=== PATIENT | male | born 1960 | race Caucasian/White ===

== ENCOUNTER 2017-06-03 10:16 | Emergency (ER) | payer OTHER ==
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
[2017-06-03 10:32] VITALS: TEMP 98.7; BMI 26.6
[2017-06-03] MEDS ORDERED: SODIUM CHLORIDE 1,000 ML IV STA (10:49)
[2017-06-03 10:58] LABS: BASO % 0.6 % (0-2.0); HEMATOCRIT 32.5 % (35.4-49); HEMOGLOBIN 11.2 GM/dL (11.7-16.9); MCH 33.7 pg (25.7-33.7); MCHC 34.5 g/dl (32.0-35.9); MEAN CELL VOLUME 97.9 fl (80-96); MEAN PLT VOLUME 9.3 fl (7.5-11.1); MONO % 8.8 % (3.8-10.2); NEUT % 64.6 % (42.8-82.8); PLATELET COUNT 250 K/MM3 (134-434); RBC 3.33 M/mm3 (4.00-5.60); RDW 13.5 % (11.9-15.9); WHITE BLOOD COUNT 8.5 K/mm3 (4.0-10.0)
[2017-06-03] MEDS ORDERED: INSULIN REGULAR HUMAN 100 UNITS/ML *VIAL IVPUSH ONE (11:19)
[2017-06-03 11:24] LABS: ALBUMIN 3.7 g/dl (3.4-5.0); ALK PHOS 179 U/L (45-117); ANION GAP 6 (8-16); BILIRUBIN,TOTAL 0.3 mg/dL (0.2-1.0); BLOOD UREA NITROGEN 23 mg/dL (7-18); CALCIUM 8.8 mg/dL (8.5-10.1); CHLORIDE 97 mmol/L (98-107); CO2 28 mmol/L (21-32); CREATININE 1.1 mg/dL (0.7-1.3); POTASSIUM 4.9 mmol/L (3.5-5.1); SGOT/AST 14 U/L (15-37); SGPT/ALT 18 U/L (12-78); SODIUM 131 mmol/L (136-145); TOT PROT 7.5 g/dl (6.4-8.2)
[2017-06-03] MEDS ORDERED: INSULIN REGULAR HUMAN 100 UNITS/ML *VIAL ONE (11:36)
[2017-06-03 11:42] LABS: GLUCOSE,RANDOM 415 mg/dL (74-106)
[2017-06-03 12:44] VITALS: BP 110/62; PULSE 68
[2017-06-03 12:59] LABS: ACETONE SERUM NEGATIVE (NEGATIVE)
[2017-06-03 13:09] LABS: URINE APPEARANCE CLEAR; URINE BILIRUBIN NEGATIVE (<2.0 mg/dL); URINE BLOOD NEGATIVE (NEGATIVE); URINE COLOR STRAW; URINE GLUCOSE (UA) 3+ (NEGATIVE); URINE KETONE NEGATIVE (NEGATIVE); URINE LEUK ESTERASE NEGATIVE (NEGATIVE); URINE NITRITE NEGATIVE (NEGATIVE); URINE PROTEIN NEGATIVE (NEGATIVE); URINE UROBILINOGEN NEGATIVE mg/dL (0.2-1.0)
--- NOTE | 2017-06-05 12:50 | EKG ---
Test Reason : Blood Pressure : / mmHG Vent. Rate : 087 BPM Atrial Rate : 087 BPM P-R Int : 138 ms QRS Dur : 090 ms QT Int : 372 ms P-R-T Axes : 065 014 055 degrees QTc Int : 447 ms NORMAL SINUS RHYTHM NORMAL ECG NO PREVIOUS ECGS AVAILABLE Confirmed by TILA WINKLER MD ([id number]) on 06/05/2017 12:50:23 PM Referred By: Confirmed By:TILA WINKLER MD
== END 2017-06-03 13:25 | disposition home or self-care (01) ==
LOC: JER 10:16
PROC: 3E0337Z Introduction of Electrolytic and Water Balance Substance into Peripheral Vein, Percutaneous Approach (ICD-10-PCS; principal; 2017-06-03)
PROC: 3E033VG Introduction of Insulin into Peripheral Vein, Percutaneous Approach (ICD-10-PCS; 2017-06-03)
DX: E10.65 Type 1 diabetes mellitus with hyperglycemia (principal); Z79.4 Long term (current) use of insulin; F17.210 Nicotine dependence, cigarettes, uncomplicated; Z79.82 Long term (current) use of aspirin; Z86.69 Personal history of other diseases of the nervous system and sense organs
CPT/HCPCS: 36415; 80053; 81003; 82009; 82550; 82553; 82962; 85025; 93005; 93010; 96361; 96374; 99282-25; J7030

== ENCOUNTER 2017-06-12 09:18 | Inpatient (IN) | payer OTHER ==
[2017-06-12 09:31] VITALS: BMI 27.6
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
[2017-06-12] MEDS ORDERED: MENTHOL/PHENOL 1 EACH UD MM PRN (13:20)
[2017-06-12] MEDS ORDERED: ACETAMINOPHEN 325 MG TABLET (FP) PO PRN (13:20)
[2017-06-12] MEDS ORDERED: LOPERAMIDE HCL 2 MG CAPSULE PO PRN (13:20)
[2017-06-12] MEDS ORDERED: P-EPHED 60MG/TRIPROLIDI 2.5MG TABLET PO PRN (13:20)
[2017-06-12] MEDS ORDERED: MAG HYDROX/AL HYDROX/SIMETH 30 ML UNIT-DOSE CUP PO PRN (13:20)
[2017-06-12] MEDS ORDERED: hydrOXYzine PAMOATE 50 MG CAPSULE (FP) PO PRN (13:20)
[2017-06-12] MEDS ORDERED: MAGNESIUM CITRATE 300 ML BOTTLE PO PRN (13:20)
[2017-06-12] MEDS ORDERED: guaiFENesin/D-METHORPHAN HB 10 ML UNIT-DOSE CUPS PO PRN (13:20)
[2017-06-12] MEDS ORDERED: INSULIN SLIDING SCALE (NOVOLOG) 1 VIAL SQ SCH (16:30)
[2017-06-12] MEDS ORDERED: PATIENT'S OWN MEDICATION (NON-FORMULARY) (Sitagliptin Phos/Metformin Hcl [Janumet 50-1,000 PO SCH (16:30)
[2017-06-12] MEDS ORDERED: INSULIN SLIDING SCALE (NOVOLOG) 1 VIAL SQ ONE (17:24)
[2017-06-12] MEDS ORDERED: TUBERCULIN PPD 5 TU/0.1ML VIAL ID ONE (17:25)
[2017-06-12] MEDS: ASPIRIN COATED 81 MG TABLET.EC PO SCH (17:26)
[2017-06-12] MEDS: sitaGLIPtin PHOSPHATE 50 MG TABLET PO SCH (17:26)
[2017-06-12] MEDS: ENALAPRIL MALEATE 10 MG TABLET (FP) PO SCH (17:26)
[2017-06-12] MEDS: metFORMIN HCL 500 MG TABLET (FP) PO SCH (17:26)
[2017-06-12] MEDS: DOCUSATE SODIUM 100 MG CAPSULE (FP) PO SCH ×2 (17:26→21:34)
[2017-06-12] MEDS: NICOTINE 21 MG/24 HOURS TOPICAL PATCH TD SCH (17:27)
[2017-06-12 17:52] LABS: HEMATOCRIT 34.5 % (35.4-49); HEMOGLOBIN 11.6 GM/dL (11.7-16.9); MCH 33.2 pg (25.7-33.7); MCHC 33.7 g/dl (32.0-35.9); MEAN CELL VOLUME 98.5 fl (80-96); MEAN PLT VOLUME 9.5 fl (7.5-11.1); PLATELET COUNT 287 K/MM3 (134-434); RDW 13.7 % (11.9-15.9); WHITE BLOOD COUNT 7.8 K/mm3 (4.0-10.0)
[2017-06-12 18:03] LABS: URINE APPEARANCE CLEAR; URINE BILIRUBIN NEGATIVE (<2.0 mg/dL); URINE COLOR LTYELLOW; URINE GLUCOSE (UA) 3+ (NEGATIVE); URINE KETONE NEGATIVE (NEGATIVE); URINE LEUK ESTERASE NEGATIVE (NEGATIVE); URINE NITRITE NEGATIVE (NEGATIVE); URINE PROTEIN NEGATIVE (NEGATIVE); URINE UROBILINOGEN NEGATIVE mg/dL (0.2-1.0)
[2017-06-12 18:36] LABS: ALBUMIN 3.9 g/dl (3.4-5.0); ANION GAP 12 (8-16); BLOOD UREA NITROGEN 18 mg/dL (7-18); CHLORIDE 100 mmol/L (98-107); CO2 24 mmol/L (21-32); CREATININE 1.1 mg/dL (0.7-1.3); POTASSIUM 4.6 mmol/L (3.5-5.1); SGOT/AST 26 U/L (15-37); SGPT/ALT 36 U/L (12-78); SODIUM 136 mmol/L (136-145)
[2017-06-12 18:38] LABS: ALK PHOS 189 U/L (45-117); BILIRUBIN,TOTAL 0.5 mg/dL (0.2-1.0); TOT PROT 7.8 g/dl (6.4-8.2)
[2017-06-12 18:40] LABS: GLUCOSE,RANDOM 425 mg/dL (74-106)
[2017-06-12 19:00] LABS: SICKLE CELL SCREEN NEGATIVE (NEGATIVE)
[2017-06-12] MEDS: ATORVASTATIN CA 40 MG TABLET (FP) PO SCH (21:33)
[2017-06-12] MEDS: THIAMINE HCL 100 MG TABLET (FP) PO SCH (21:34)
[2017-06-12] MEDS: INSULIN (LEVEMIR) 100 UNITS/ML UNITS SQ SCH (21:36)
[2017-06-12] MEDS: FLUTICASONE PROP 0.05% 16 GM NASAL SPRAY NS SCH ×2 (21:38→21:41)
[2017-06-12] MEDS ORDERED: MELATONIN 5 MG TABLETS PO PRN (22:00)
[2017-06-13] MEDS: sitaGLIPtin PHOSPHATE 50 MG TABLET PO SCH ×2 (06:31→16:38)
[2017-06-13] MEDS: metFORMIN HCL 500 MG TABLET (FP) PO SCH ×2 (06:31→16:38)
[2017-06-13] MEDS ORDERED: INSULIN SLIDING SCALE (NOVOLOG) 1 VIAL SQ SCH (07:00)
[2017-06-13] MEDS: PRENATAL VITAMINS W/ FOLIC ACID TABLET (FP) PO SCH (10:15)
[2017-06-13] MEDS: ENALAPRIL MALEATE 10 MG TABLET (FP) PO SCH (10:15)
[2017-06-13] MEDS: ASPIRIN COATED 81 MG TABLET.EC PO SCH (10:15)
[2017-06-13] MEDS: DOCUSATE SODIUM 100 MG CAPSULE (FP) PO SCH ×2 (10:15→21:22)
[2017-06-13] MEDS: NICOTINE 21 MG/24 HOURS TOPICAL PATCH TD SCH (10:16)
--- NOTE | 2017-06-13 10:24 | EKG ---
Test Reason : Blood Pressure : / mmHG Vent. Rate : 076 BPM Atrial Rate : 076 BPM P-R Int : 134 ms QRS Dur : 090 ms QT Int : 392 ms P-R-T Axes : 068 025 062 degrees QTc Int : 441 ms NORMAL SINUS RHYTHM NORMAL ECG WHEN COMPARED WITH ECG OF 03-JUN-2017 10:30, T WAVE AMPLITUDE HAS DECREASED IN ANTERIOR LEADS Confirmed by MD EDISON, ELSA ([id number]) on 06/13/2017 10:24:35 AM Referred By: Confirmed By:ELSA HOGAN MD
[2017-06-13] MEDS ORDERED: INSULIN (NOVOLOG) ASPART 100 UNITS/ML 10ML VIAL ONE ×2 (11:53→16:38)
[2017-06-13] MEDS: INSULIN SLIDING SCALE (NOVOLOG) 1 VIAL SQ SCH ×3 (11:54→21:23)
[2017-06-13] MEDS: NICOTINE POLACRILEX 4 MG GUM BUC PRN ×3 (11:56→21:26)
[2017-06-13] MEDS: FLUTICASONE PROP 0.05% 16 GM NASAL SPRAY NS SCH ×2 (12:07→21:23)
--- NOTE | 2017-06-13 13:35 | PN ---
S Progress Note Note: Patient with hx of heroin dependence c/o of protracted withdrawal symptoms : runny nose, diarrhea, body aches and chills. Vital Signs Temperature 97.7 F 06/13/17 06:48 Pulse Rate 81 06/13/17 06:48 Respiratory Rate 18 06/13/17 06:48 Blood Pressure 113/73 06/13/17 06:48 O2 Sat by Pulse Oximetry (%) 06/12/17 06/12/17 14:00 14:00 WBC 7.8 RBC 3.50 L Hgb 11.6 L Hct 34.5 L MCV 98.5 H MCHC 33.7 RDW 13.7 Plt Count 287 Sodium 136 Potassium 4.6 Chloride 100 Carbon Dioxide 24 Anion Gap 12 BUN 18 D Creatinine 1.1 Laboratory Last Values WBC 7.8 K/mm3 (4.0-10.0) 06/12/17 14:00 RBC 3.50 M/mm3 (4.00-5.60) L 06/12/17 14:00 Hgb 11.6 GM/dL (11.7-16.9) L 06/12/17 14:00 Hct 34.5 % (35.4-49) L 06/12/17 14:00 MCV 98.5 fl (80-96) H 06/12/17 14:00 MCH 33.2 pg (25.7-33.7) 06/12/17 14:00 MCHC 33.7 g/dl (32.0-35.9) 06/12/17 14:00 RDW 13.7 % (11.9-15.9) 06/12/17 14:00 Plt Count 287 K/MM3 (134-434) 06/12/17 14:00 MPV 9.5 fl (7.5-11.1) 06/12/17 14:00 Sickle Cell Screen Negative (NEGATIVE) 06/12/17 14:00 Sodium 136 mmol/L (136-145) 06/12/17 14:00 Potassium 4.6 mmol/L (3.5-5.1) 06/12/17 14:00 Chloride 100 mmol/L (98-107) 06/12/17 14:00 Carbon Dioxide 24 mmol/L (21-32) 06/12/17 14:00 Anion Gap 12 (8-16) 06/12/17 14:00 BUN 18 mg/dL (7-18) D 06/12/17 14:00 Creatinine 1.1 mg/dL (0.7-1.3) 06/12/17 14:00 Creat Clearance w eGFR > 60 (>60) 06/12/17 14:00 POC Glucometer 356 UNITS (80-120) 06/13/17 11:50 Random Glucose 425 mg/dL (74-106) H* 06/12/17 14:00 Calcium 9.0 mg/dL (8.5-10.1) 06/12/17 14:00 Total Bilirubin 0.5 mg/dL (0.2-1.0) D 06/12/17 14:00 AST 26 U/L (15-37) D 06/12/17 14:00 ALT 36 U/L (12-78) D 06/12/17 14:00 Alkaline Phosphatase 189 U/L (45-117) H 06/12/17 14:00 Total Protein 7.8 g/dl (6.4-8.2) 06/12/17 14:00 Albumin 3.9 g/dl (3.4-5.0) 06/12/17 14:00 Urine Color Ltyellow 06/12/17 17:44 Urine Appearance Clear 06/12/17 17:44 Urine pH 5.0 (5.0-8.0) 06/12/17 17:44 Ur Specific [place] 1.025 (1.001-1.035) 06/12/17 17:44 Urine Protein Negative (NEGATIVE) 06/12/17 17:44 Urine Glucose (UA) 3+ (NEGATIVE) H 06/12/17 17:44 Urine Ketones Negative (NEGATIVE) 06/12/17 17:44 Urine Blood Negative (NEGATIVE) 06/12/17 17:44 Urine Nitrite Negative (NEGATIVE) 06/12/17 17:44 Urine Bilirubin Negative (<2.0 mg/dL) 06/12/17 17:44 Urine Urobilinogen Negative mg/dL (0.2-1.0) 06/12/17 17:44 Ur Leukocyte Esterase Negative (NEGATIVE) 06/12/17 17:44 RPR Titer Nonreactive (NONREACTIVE) 06/12/17 14:00 HIV 1&2 Antibody Screen Negative 06/13/17 07:30 HIV P24 Antigen Negative 04/24/18 07:30 Labs noted A/P Patient AOx3, no distress, anxious + mild diaphoresis No adventcious breath sounds BS x4 Plan: Continue BGM x QID with insulin coverage Increase fluids Patient started on Suboxone 2mg film qd, patient will be monitor for dose adjustment Immodium for diarrhea tylenol for body aches
[2017-06-13] MEDS: IBUPROFEN 400 MG TABLET (FP) PO PRN (13:37)
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
[2017-06-13] MEDS: BUPRENORPHINE/NALOXONE 2 MG/0.5 MG FILM PACKET SL SCH (14:15)
[2017-06-13] MEDS: ATORVASTATIN CA 40 MG TABLET (FP) PO SCH (21:22)
[2017-06-13] MEDS: THIAMINE HCL 100 MG TABLET (FP) PO SCH (21:22)
[2017-06-13] MEDS: INSULIN (LEVEMIR) 100 UNITS/ML UNITS SQ SCH (21:22)
[2017-06-13] MEDS: BACITRACIN 0.9 GM PACKET TP SCH (21:25)
[2017-06-13] MEDS: ARIPiprazole 10 MG TABLET PO SCH (21:25)
[2017-06-13] MEDS: MIRTAZAPINE 15 MG TABLET (FP) PO SCH (21:25)
[2017-06-14] MEDS: INSULIN SLIDING SCALE (NOVOLOG) 1 VIAL SQ SCH ×4 (06:46→21:24)
[2017-06-14] MEDS: NICOTINE POLACRILEX 4 MG GUM BUC PRN ×3 (06:47→16:54)
[2017-06-14] MEDS: metFORMIN HCL 500 MG TABLET (FP) PO SCH ×2 (06:47→16:53)
[2017-06-14] MEDS: sitaGLIPtin PHOSPHATE 50 MG TABLET PO SCH ×2 (06:47→16:53)
[2017-06-14] MEDS: IBUPROFEN 400 MG TABLET (FP) PO PRN ×2 (06:48→11:54)
[2017-06-14] MEDS: ASPIRIN COATED 81 MG TABLET.EC PO SCH (09:46)
[2017-06-14] MEDS: ENALAPRIL MALEATE 10 MG TABLET (FP) PO SCH (09:46)
[2017-06-14] MEDS: FLUTICASONE PROP 0.05% 16 GM NASAL SPRAY NS SCH ×2 (09:46→21:26)
[2017-06-14] MEDS: PRENATAL VITAMINS W/ FOLIC ACID TABLET (FP) PO SCH (09:46)
[2017-06-14] MEDS: DOCUSATE SODIUM 100 MG CAPSULE (FP) PO SCH ×2 (09:46→21:25)
[2017-06-14] MEDS: BUPRENORPHINE/NALOXONE 2 MG/0.5 MG FILM PACKET SL SCH (09:46)
[2017-06-14] MEDS: BACITRACIN 0.9 GM PACKET TP SCH ×2 (09:46→21:25)
[2017-06-14] MEDS: VENLAFAXINE HCL 150 MG E.R. CAPSULE PO SCH (09:47)
[2017-06-14] MEDS: NICOTINE 21 MG/24 HOURS TOPICAL PATCH TD SCH (09:48)
[2017-06-14] MEDS ORDERED: INSULIN (NOVOLOG) ASPART 100 UNITS/ML 10ML VIAL ONE (11:52)
--- NOTE | 2017-06-14 12:45 | PN ---
S Progress Note Note: Pt c/o left hand discomfort. Chronic after sustaining fall 6 months ago. Treated in ER and as per patient XRAY at that time showed no broken bones. Laboratory Last Values WBC 7.8 K/mm3 (4.0-10.0) 06/12/17 14:00 RBC 3.50 M/mm3 (4.00-5.60) L 06/12/17 14:00 Hgb 11.6 GM/dL (11.7-16.9) L 06/12/17 14:00 Hct 34.5 % (35.4-49) L 06/12/17 14:00 MCV 98.5 fl (80-96) H 06/12/17 14:00 MCH 33.2 pg (25.7-33.7) 06/12/17 14:00 MCHC 33.7 g/dl (32.0-35.9) 06/12/17 14:00 RDW 13.7 % (11.9-15.9) 06/12/17 14:00 Plt Count 287 K/MM3 (134-434) 06/12/17 14:00 MPV 9.5 fl (7.5-11.1) 06/12/17 14:00 Sickle Cell Screen Negative (NEGATIVE) 06/12/17 14:00 Sodium 136 mmol/L (136-145) 06/12/17 14:00 Potassium 4.6 mmol/L (3.5-5.1) 06/12/17 14:00 Chloride 100 mmol/L (98-107) 06/12/17 14:00 Carbon Dioxide 24 mmol/L (21-32) 06/12/17 14:00 Anion Gap 12 (8-16) 06/12/17 14:00 BUN 18 mg/dL (7-18) D 06/12/17 14:00 Creatinine 1.1 mg/dL (0.7-1.3) 06/12/17 14:00 Creat Clearance w eGFR > 60 (>60) 06/12/17 14:00 POC Glucometer 150 UNITS (80-120) 06/14/17 06:46 Random Glucose 425 mg/dL (74-106) H* 06/12/17 14:00 Calcium 9.0 mg/dL (8.5-10.1) 06/12/17 14:00 Total Bilirubin 0.5 mg/dL (0.2-1.0) D 06/12/17 14:00 AST 26 U/L (15-37) D 06/12/17 14:00 ALT 36 U/L (12-78) D 06/12/17 14:00 Alkaline Phosphatase 189 U/L (45-117) H 06/12/17 14:00 Total Protein 7.8 g/dl (6.4-8.2) 06/12/17 14:00 Albumin 3.9 g/dl (3.4-5.0) 06/12/17 14:00 Urine Color Ltyellow 06/12/17 17:44 Urine Appearance Clear 06/12/17 17:44 Urine pH 5.0 (5.0-8.0) 06/12/17 17:44 Ur Specific [place] 1.025 (1.001-1.035) 06/12/17 17:44 Urine Protein Negative (NEGATIVE) 06/12/17 17:44 Urine Glucose (UA) 3+ (NEGATIVE) H 06/12/17 17:44 Urine Ketones Negative (NEGATIVE) 06/12/17 17:44 Urine Blood Negative (NEGATIVE) 06/12/17 17:44 Urine Nitrite Negative (NEGATIVE) 06/12/17 17:44 Urine Bilirubin Negative (<2.0 mg/dL) 06/12/17 17:44 Urine Urobilinogen Negative mg/dL (0.2-1.0) 06/12/17 17:44 Ur Leukocyte Esterase Negative (NEGATIVE) 06/12/17 17:44 RPR Titer Nonreactive (NONREACTIVE) 06/12/17 14:00 HIV 1&2 Antibody Screen Negative 06/13/17 07:30 HIV P24 Antigen Negative 06/13/17 07:30 Vital Signs Temperature 98.0 F 06/14/17 06:36 Pulse Rate 83 06/14/17 06:36 Respiratory Rate 18 06/14/17 06:36 Blood Pressure 144/80 06/14/17 06:36 O2 Sat by Pulse Oximetry (%) Obj: general: in no acute distress. Ambulating within unit but patient reports using cane in past for unsteady gait. Would like cane to ambulate within unit. Skin warm and dry.Intact Ext: left hand with brace. Mild +1 swelling noted. + Flexion and extension of fingers with mild discomfort. A/P: Left hand swelling/discomfort Will continue Motrin as ordered add Ted lacy ointment BID continue to monitor clinically
[2017-06-14] MEDS: INSULIN (LEVEMIR) 100 UNITS/ML UNITS SQ SCH (21:22)
[2017-06-14] MEDS: MIRTAZAPINE 15 MG TABLET (FP) PO SCH (21:25)
[2017-06-14] MEDS: ATORVASTATIN CA 40 MG TABLET (FP) PO SCH (21:25)
[2017-06-14] MEDS: THIAMINE HCL 100 MG TABLET (FP) PO SCH (21:25)
[2017-06-14] MEDS: METHYL SALICYLATE/MENTHOL OINT 30 GM TUBE TP SCH (21:25)
[2017-06-14] MEDS: ARIPiprazole 10 MG TABLET PO SCH (21:25)
[2017-06-15] MEDS: INSULIN SLIDING SCALE (NOVOLOG) 1 VIAL SQ SCH ×4 (06:39→21:31)
[2017-06-15] MEDS: metFORMIN HCL 500 MG TABLET (FP) PO SCH ×2 (08:04→17:06)
[2017-06-15] MEDS: sitaGLIPtin PHOSPHATE 50 MG TABLET PO SCH ×2 (08:04→17:06)
[2017-06-15] MEDS: ASPIRIN COATED 81 MG TABLET.EC PO SCH (09:55)
[2017-06-15] MEDS: NICOTINE 21 MG/24 HOURS TOPICAL PATCH TD SCH (09:55)
[2017-06-15] MEDS: PRENATAL VITAMINS W/ FOLIC ACID TABLET (FP) PO SCH (09:55)
[2017-06-15] MEDS: BACITRACIN 0.9 GM PACKET TP SCH ×2 (09:55→21:26)
[2017-06-15] MEDS: FLUTICASONE PROP 0.05% 16 GM NASAL SPRAY NS SCH ×2 (09:55→21:28)
[2017-06-15] MEDS: ENALAPRIL MALEATE 10 MG TABLET (FP) PO SCH (09:58)
[2017-06-15] MEDS: BUPRENORPHINE/NALOXONE 2 MG/0.5 MG FILM PACKET SL SCH (09:58)
[2017-06-15] MEDS: VENLAFAXINE HCL 150 MG E.R. CAPSULE PO SCH (09:58)
[2017-06-15] MEDS: METHYL SALICYLATE/MENTHOL OINT 30 GM TUBE TP SCH ×2 (09:58→21:28)
[2017-06-15] MEDS: DOCUSATE SODIUM 100 MG CAPSULE (FP) PO SCH ×2 (09:58→21:26)
[2017-06-15] MEDS: IBUPROFEN 400 MG TABLET (FP) PO PRN (09:59)
[2017-06-15] MEDS ORDERED: INSULIN (NOVOLOG) ASPART 100 UNITS/ML 10ML VIAL ONE (11:54)
--- NOTE | 2017-06-15 16:41 | PN ---
[facility] Progress Note Note: Patient c/o of runny nose, diarrhea with BM x3, runny nose sweats, chills, body caches. Vital Signs Temperature 97.3 F L 06/15/17 07:11 Pulse Rate 78 06/15/17 07:11 Respiratory Rate 18 06/15/17 07:11 Blood Pressure 141/91 06/15/17 07:11 O2 Sat by Pulse Oximetry (%) Laboratory Last Values WBC 7.8 K/mm3 (4.0-10.0) 06/12/17 14:00 RBC 3.50 M/mm3 (4.00-5.60) L 06/12/17 14:00 Hgb 11.6 GM/dL (11.7-16.9) L 06/12/17 14:00 Hct 34.5 % (35.4-49) L 06/12/17 14:00 MCV 98.5 fl (80-96) H 06/12/17 14:00 MCH 33.2 pg (25.7-33.7) 06/12/17 14:00 MCHC 33.7 g/dl (32.0-35.9) 06/12/17 14:00 RDW 13.7 % (11.9-15.9) 06/12/17 14:00 Plt Count 287 K/MM3 (134-434) 06/12/17 14:00 MPV 9.5 fl (7.5-11.1) 06/12/17 14:00 Sickle Cell Screen Negative (NEGATIVE) 06/12/17 14:00 Sodium 136 mmol/L (136-145) 06/12/17 14:00 Potassium 4.6 mmol/L (3.5-5.1) 06/12/17 14:00 Chloride 100 mmol/L (98-107) 06/12/17 14:00 Carbon Dioxide 24 mmol/L (21-32) 06/12/17 14:00 Anion Gap 12 (8-16) 06/12/17 14:00 BUN 18 mg/dL (7-18) D 06/12/17 14:00 Creatinine 1.1 mg/dL (0.7-1.3) 06/12/17 14:00 Creat Clearance w eGFR > 60 (>60) 06/12/17 14:00 POC Glucometer 258 UNITS (80-120) 06/15/17 11:52 Random Glucose 425 mg/dL (74-106) H* 06/12/17 14:00 Calcium 9.0 mg/dL (8.5-10.1) 06/12/17 14:00 Total Bilirubin 0.5 mg/dL (0.2-1.0) D 06/12/17 14:00 AST 26 U/L (15-37) D 06/12/17 14:00 ALT 36 U/L (12-78) D 06/12/17 14:00 Alkaline Phosphatase 189 U/L (45-117) H 06/12/17 14:00 Total Protein 7.8 g/dl (6.4-8.2) 06/12/17 14:00 Albumin 3.9 g/dl (3.4-5.0) 06/12/17 14:00 Urine Color Ltyellow 06/12/17 17:44 Urine Appearance Clear 06/12/17 17:44 Urine pH 5.0 (5.0-8.0) 06/12/17 17:44 Ur Specific [place] 1.025 (1.001-1.035) 06/12/17 17:44 Urine Protein Negative (NEGATIVE) 06/12/17 17:44 Urine Glucose (UA) 3+ (NEGATIVE) H 06/12/17 17:44 Urine Ketones Negative (NEGATIVE) 06/12/17 17:44 Urine Blood Negative (NEGATIVE) 06/12/17 17:44 Urine Nitrite Negative (NEGATIVE) 06/12/17 17:44 Urine Bilirubin Negative (<2.0 mg/dL) 06/12/17 17:44 Urine Urobilinogen Negative mg/dL (0.2-1.0) 06/12/17 17:44 Ur Leukocyte Esterase Negative (NEGATIVE) 06/12/17 17:44 RPR Titer Nonreactive (NONREACTIVE) 06/12/17 14:00 HIV 1&2 Antibody Screen Negative 06/13/17 07:30 HIV P24 Antigen Negative 06/13/17 07:30 A/P Patient AOX3 Ambulating in the unit No apparent distress BS x 4, no tenderness - Opioid Protracted withdrawal Plan: Increase suboxone from 2mg to 4mg starting 06/16/17 lomotil one dose increase fluids continue to monitor
[2017-06-15] MEDS ORDERED: DIPHENOXYLATE 2.5/ATROPINE.025 1 COMBO TABLET PO ONE (17:00)
[2017-06-15] MEDS ORDERED: INSULIN SLIDING SCALE (NOVOLOG) 1 VIAL SQ ONE ×2 (17:08→22:11)
[2017-06-15] MEDS: MIRTAZAPINE 15 MG TABLET (FP) PO SCH (21:26)
[2017-06-15] MEDS: ARIPiprazole 10 MG TABLET PO SCH (21:26)
[2017-06-15] MEDS: THIAMINE HCL 100 MG TABLET (FP) PO SCH (21:27)
[2017-06-15] MEDS: ATORVASTATIN CA 40 MG TABLET (FP) PO SCH (21:27)
[2017-06-15] MEDS: INSULIN (LEVEMIR) 100 UNITS/ML UNITS SQ SCH (21:28)
[2017-06-15] MEDS: NICOTINE POLACRILEX 4 MG GUM BUC PRN (21:32)
[2017-06-16] MEDS: metFORMIN HCL 500 MG TABLET (FP) PO SCH ×2 (06:42→16:51)
[2017-06-16] MEDS: sitaGLIPtin PHOSPHATE 50 MG TABLET PO SCH ×2 (06:43→16:51)
[2017-06-16] MEDS: INSULIN SLIDING SCALE (NOVOLOG) 1 VIAL SQ SCH ×4 (06:44→21:34)
[2017-06-16] MEDS: BACITRACIN 0.9 GM PACKET TP SCH ×2 (09:54→21:37)
[2017-06-16] MEDS: DOCUSATE SODIUM 100 MG CAPSULE (FP) PO SCH ×2 (09:55→21:31)
[2017-06-16] MEDS: FLUTICASONE PROP 0.05% 16 GM NASAL SPRAY NS SCH ×2 (09:55→21:36)
[2017-06-16] MEDS: VENLAFAXINE HCL 150 MG E.R. CAPSULE PO SCH (09:55)
[2017-06-16] MEDS: PRENATAL VITAMINS W/ FOLIC ACID TABLET (FP) PO SCH (09:55)
[2017-06-16] MEDS: METHYL SALICYLATE/MENTHOL OINT 30 GM TUBE TP SCH ×2 (09:56→21:36)
[2017-06-16] MEDS: BUPRENORPHINE/NALOXONE 2 MG/0.5 MG FILM PACKET SL SCH (09:56)
[2017-06-16] MEDS: ENALAPRIL MALEATE 10 MG TABLET (FP) PO SCH (09:56)
[2017-06-16] MEDS: ASPIRIN COATED 81 MG TABLET.EC PO SCH (09:56)
[2017-06-16] MEDS: NICOTINE 21 MG/24 HOURS TOPICAL PATCH TD SCH (09:57)
[2017-06-16] MEDS: IBUPROFEN 400 MG TABLET (FP) PO PRN ×2 (09:59→21:32)
[2017-06-16] MEDS: NICOTINE POLACRILEX 4 MG GUM BUC PRN ×2 (10:00→21:37)
[2017-06-16] MEDS ORDERED: INSULIN (NOVOLOG) ASPART 100 UNITS/ML 10ML VIAL ONE (11:48)
[2017-06-16] MEDS: THIAMINE HCL 100 MG TABLET (FP) PO SCH (21:31)
[2017-06-16] MEDS: MIRTAZAPINE 15 MG TABLET (FP) PO SCH (21:31)
[2017-06-16] MEDS: ATORVASTATIN CA 40 MG TABLET (FP) PO SCH (21:31)
[2017-06-16] MEDS: ARIPiprazole 10 MG TABLET PO SCH (21:31)
[2017-06-16] MEDS ORDERED: INSULIN SLIDING SCALE (NOVOLOG) 1 VIAL SQ ONE (21:31)
[2017-06-16] MEDS: INSULIN (LEVEMIR) 100 UNITS/ML UNITS SQ SCH (21:33)
[2017-06-17] MEDS: INSULIN SLIDING SCALE (NOVOLOG) 1 VIAL SQ SCH ×4 (06:25→21:32)
[2017-06-17] MEDS: metFORMIN HCL 500 MG TABLET (FP) PO SCH ×3 (06:29→16:50)
[2017-06-17] MEDS: sitaGLIPtin PHOSPHATE 50 MG TABLET PO SCH ×3 (06:30→16:50)
[2017-06-17] MEDS: VENLAFAXINE HCL 150 MG E.R. CAPSULE PO SCH (10:00)
[2017-06-17] MEDS: ENALAPRIL MALEATE 10 MG TABLET (FP) PO SCH (10:00)
[2017-06-17] MEDS: ASPIRIN COATED 81 MG TABLET.EC PO SCH (10:00)
[2017-06-17] MEDS: DOCUSATE SODIUM 100 MG CAPSULE (FP) PO SCH ×2 (10:00→21:30)
[2017-06-17] MEDS: BACITRACIN 0.9 GM PACKET TP SCH ×2 (10:00→21:30)
[2017-06-17] MEDS: IBUPROFEN 400 MG TABLET (FP) PO PRN ×2 (10:02→16:52)
[2017-06-17] MEDS: FLUTICASONE PROP 0.05% 16 GM NASAL SPRAY NS SCH ×2 (10:03→21:30)
[2017-06-17] MEDS: BUPRENORPHINE/NALOXONE 2 MG/0.5 MG FILM PACKET SL SCH (10:03)
[2017-06-17] MEDS: PRENATAL VITAMINS W/ FOLIC ACID TABLET (FP) PO SCH (10:03)
[2017-06-17] MEDS: NICOTINE 21 MG/24 HOURS TOPICAL PATCH TD SCH (10:04)
[2017-06-17] MEDS: METHYL SALICYLATE/MENTHOL OINT 30 GM TUBE TP SCH ×2 (10:04→21:30)
[2017-06-17] MEDS ORDERED: INSULIN (NOVOLOG) ASPART 100 UNITS/ML 10ML VIAL ONE ×2 (13:59→21:47)
[2017-06-17] MEDS: NICOTINE POLACRILEX 4 MG GUM BUC PRN ×2 (16:52→21:34)
[2017-06-17] MEDS: MIRTAZAPINE 15 MG TABLET (FP) PO SCH (21:30)
[2017-06-17] MEDS: ARIPiprazole 10 MG TABLET PO SCH (21:30)
[2017-06-17] MEDS: THIAMINE HCL 100 MG TABLET (FP) PO SCH (21:30)
[2017-06-17] MEDS: INSULIN (LEVEMIR) 100 UNITS/ML UNITS SQ SCH (21:31)
[2017-06-17] MEDS: ATORVASTATIN CA 40 MG TABLET (FP) PO SCH (21:31)
[2017-06-18] MEDS: INSULIN SLIDING SCALE (NOVOLOG) 1 VIAL SQ SCH ×4 (06:31→21:36)
[2017-06-18] MEDS: metFORMIN HCL 500 MG TABLET (FP) PO SCH ×2 (08:10→16:42)
[2017-06-18] MEDS: sitaGLIPtin PHOSPHATE 50 MG TABLET PO SCH ×2 (08:10→16:42)
[2017-06-18] MEDS: FLUTICASONE PROP 0.05% 16 GM NASAL SPRAY NS SCH ×2 (09:50→21:35)
[2017-06-18] MEDS: ENALAPRIL MALEATE 10 MG TABLET (FP) PO SCH (09:51)
[2017-06-18] MEDS: DOCUSATE SODIUM 100 MG CAPSULE (FP) PO SCH ×2 (09:51→21:35)
[2017-06-18] MEDS: VENLAFAXINE HCL 150 MG E.R. CAPSULE PO SCH (09:51)
[2017-06-18] MEDS: PRENATAL VITAMINS W/ FOLIC ACID TABLET (FP) PO SCH (09:51)
[2017-06-18] MEDS: ASPIRIN COATED 81 MG TABLET.EC PO SCH (09:51)
[2017-06-18] MEDS: BUPRENORPHINE/NALOXONE 2 MG/0.5 MG FILM PACKET SL SCH (09:52)
[2017-06-18] MEDS: NICOTINE 21 MG/24 HOURS TOPICAL PATCH TD SCH (09:53)
[2017-06-18] MEDS: BACITRACIN 0.9 GM PACKET TP SCH ×2 (09:53→21:36)
[2017-06-18] MEDS: IBUPROFEN 400 MG TABLET (FP) PO PRN (09:54)
[2017-06-18] MEDS: METHYL SALICYLATE/MENTHOL OINT 30 GM TUBE TP SCH ×2 (09:54→21:36)
[2017-06-18] MEDS: NICOTINE POLACRILEX 4 MG GUM BUC PRN ×2 (09:55→16:44)
[2017-06-18] MEDS ORDERED: INSULIN (NOVOLOG) ASPART 100 UNITS/ML 10ML VIAL ONE (11:47)
[2017-06-18] MEDS: MAGNESIUM HYDROX 2400MG/30ML ORAL SUSPENSION 30 ML CUP PO PRN (16:44)
[2017-06-18] MEDS: INSULIN (LEVEMIR) 100 UNITS/ML UNITS SQ SCH (21:33)
[2017-06-18] MEDS: ARIPiprazole 10 MG TABLET PO SCH (21:34)
[2017-06-18] MEDS: ATORVASTATIN CA 40 MG TABLET (FP) PO SCH (21:35)
[2017-06-18] MEDS: MIRTAZAPINE 15 MG TABLET (FP) PO SCH (21:35)
[2017-06-18] MEDS: THIAMINE HCL 100 MG TABLET (FP) PO SCH (21:35)
[2017-06-19] MEDS: INSULIN SLIDING SCALE (NOVOLOG) 1 VIAL SQ SCH ×2 (06:30→11:53)
[2017-06-19] MEDS: sitaGLIPtin PHOSPHATE 50 MG TABLET PO SCH (06:30)
[2017-06-19] MEDS: metFORMIN HCL 500 MG TABLET (FP) PO SCH (06:30)
[2017-06-19 06:47] VITALS: BP 126/68; PULSE 79; TEMP 98.4
[2017-06-19] MEDS: NICOTINE POLACRILEX 4 MG GUM BUC PRN ×2 (07:04→11:54)
[2017-06-19] MEDS: FLUTICASONE PROP 0.05% 16 GM NASAL SPRAY NS SCH (09:57)
[2017-06-19] MEDS: DOCUSATE SODIUM 100 MG CAPSULE (FP) PO SCH (09:57)
[2017-06-19] MEDS: ASPIRIN COATED 81 MG TABLET.EC PO SCH (09:57)
[2017-06-19] MEDS: ENALAPRIL MALEATE 10 MG TABLET (FP) PO SCH (09:57)
[2017-06-19] MEDS: PRENATAL VITAMINS W/ FOLIC ACID TABLET (FP) PO SCH (09:57)
[2017-06-19] MEDS: VENLAFAXINE HCL 150 MG E.R. CAPSULE PO SCH (09:57)
[2017-06-19] MEDS: BUPRENORPHINE/NALOXONE 2 MG/0.5 MG FILM PACKET SL SCH (09:58)
[2017-06-19] MEDS: NICOTINE 21 MG/24 HOURS TOPICAL PATCH TD SCH (09:58)
[2017-06-19] MEDS: METHYL SALICYLATE/MENTHOL OINT 30 GM TUBE TP SCH (09:58)
[2017-06-19] MEDS: BACITRACIN 0.9 GM PACKET TP SCH (11:00)
[2017-06-19] MEDS: MAGNESIUM HYDROX 2400MG/30ML ORAL SUSPENSION 30 ML CUP PO PRN (11:05)
[2017-06-19] MEDS ORDERED: INSULIN (NOVOLOG) ASPART 100 UNITS/ML 10ML VIAL ONE (11:52)
--- NOTE | 2017-06-19 14:29 | PN ---
[facility] Progress Note Note: Notified by RN patient wants to sign out AMA. Vital Signs Temperature 98.4 F 06/19/17 06:47 Pulse Rate 79 06/19/17 06:47 Respiratory Rate 18 06/19/17 06:47 Blood Pressure 126/68 06/19/17 06:47 O2 Sat by Pulse Oximetry (%) Laboratory Tests 06/12/17 06/12/17 06/12/17 14:00 14:00 14:00 WBC 7.8 RBC 3.50 L Hgb 11.6 L Hct 34.5 L MCV 98.5 H MCH 33.2 MCHC 33.7 RDW 13.7 Plt Count 287 MPV 9.5 Sickle Cell Screen Negative Sodium 136 Potassium 4.6 Chloride 100 Carbon Dioxide 24 Anion Gap 12 BUN 18 D Creatinine 1.1 Creat Clearance w eGFR > 60 POC Glucometer Random Glucose 425 H* Calcium 9.0 Total Bilirubin 0.5 D AST 26 D ALT 36 D Alkaline Phosphatase 189 H Total Protein 7.8 Albumin 3.9 Urine Color Urine Appearance Urine pH Ur Specific [place] Urine Protein Urine Glucose (UA) Urine Ketones Urine Blood Urine Nitrite Urine Bilirubin Urine Urobilinogen Ur Leukocyte Esterase RPR Titer Nonreactive HIV 1&2 Antibody Screen HIV P24 Antigen 06/12/17 06/12/17 06/12/17 14:03 17:20 17:44 WBC RBC Hgb Hct MCV MCH MCHC RDW Plt Count MPV Sickle Cell Screen Sodium Potassium Chloride Carbon Dioxide Anion Gap BUN Creatinine Creat Clearance w eGFR POC Glucometer 306 524 Random Glucose Calcium Total Bilirubin AST ALT Alkaline Phosphatase Total Protein Albumin Urine Color Ltyellow Urine Appearance Clear Urine pH 5.0 Ur Specific [place] 1.025 Urine Protein Negative Urine Glucose (UA) 3+ H Urine Ketones Negative Urine Blood Negative Urine Nitrite Negative Urine Bilirubin Negative Urine Urobilinogen Negative Ur Leukocyte Esterase Negative RPR Titer HIV 1&2 Antibody Screen HIV P24 Antigen 06/12/17 06/13/17 06/13/17 21:36 06:31 07:30 WBC RBC Hgb Hct MCV MCH MCHC RDW Plt Count MPV Sickle Cell Screen Sodium Potassium Chloride Carbon Dioxide Anion Gap BUN Creatinine Creat Clearance w eGFR POC Glucometer 397 184 Random Glucose Calcium Total Bilirubin AST ALT Alkaline Phosphatase Total Protein Albumin Urine Color Urine Appearance Urine pH Ur Specific [place] Urine Protein Urine Glucose (UA) Urine Ketones Urine Blood Urine Nitrite Urine Bilirubin Urine Urobilinogen Ur Leukocyte Esterase RPR Titer HIV 1&2 Antibody Screen Negative HIV P24 Antigen Negative 06/13/17 06/13/17 06/13/17 11:50 16:35 21:21 WBC RBC Hgb Hct MCV MCH MCHC RDW Plt Count MPV Sickle Cell Screen Sodium Potassium Chloride Carbon Dioxide Anion Gap BUN Creatinine Creat Clearance w eGFR POC Glucometer 356 313 320 Random Glucose Calcium Total Bilirubin AST ALT Alkaline Phosphatase Total Protein Albumin Urine Color Urine Appearance Urine pH Ur Specific [place] Urine Protein Urine Glucose (UA) Urine Ketones Urine Blood Urine Nitrite Urine Bilirubin Urine Urobilinogen Ur Leukocyte Esterase RPR Titer HIV 1&2 Antibody Screen HIV P24 Antigen 06/14/17 06/14/17 06/14/17 06:46 11:50 16:51 WBC RBC Hgb Hct MCV MCH MCHC RDW Plt Count MPV Sickle Cell Screen Sodium Potassium Chloride Carbon Dioxide Anion Gap BUN Creatinine Creat Clearance w eGFR POC Glucometer 150 188 134 Random Glucose Calcium Total Bilirubin AST ALT Alkaline Phosphatase Total Protein Albumin Urine Color Urine Appearance Urine pH Ur Specific [place] Urine Protein Urine Glucose (UA) Urine Ketones Urine Blood Urine Nitrite Urine Bilirubin Urine Urobilinogen Ur Leukocyte Esterase RPR Titer HIV 1&2 Antibody Screen HIV P24 Antigen 06/14/17 06/15/17 06/15/17 21:22 06:37 11:52 WBC RBC Hgb Hct MCV MCH MCHC RDW Plt Count MPV Sickle Cell Screen Sodium Potassium Chloride Carbon Dioxide Anion Gap BUN Creatinine Creat Clearance w eGFR POC Glucometer 255 75 258 Random Glucose Calcium Total Bilirubin AST ALT Alkaline Phosphatase Total Protein Albumin Urine Color Urine Appearance Urine pH Ur Specific [place] Urine Protein Urine Glucose (UA) Urine Ketones Urine Blood Urine Nitrite Urine Bilirubin Urine Urobilinogen Ur Leukocyte Esterase RPR Titer HIV 1&2 Antibody Screen HIV P24 Antigen 06/15/17 06/15/17 06/16/17 17:05 20:48 06:41 WBC RBC Hgb Hct MCV MCH MCHC RDW Plt Count MPV Sickle Cell Screen Sodium Potassium Chloride Carbon Dioxide Anion Gap BUN Creatinine Creat Clearance w eGFR POC Glucometer 206 288 128 Random Glucose Calcium Total Bilirubin AST ALT Alkaline Phosphatase Total Protein Albumin Urine Color Urine Appearance Urine pH Ur Specific [place] Urine Protein Urine Glucose (UA) Urine Ketones Urine Blood Urine Nitrite Urine Bilirubin Urine Urobilinogen Ur Leukocyte Esterase RPR Titer HIV 1&2 Antibody Screen HIV P24 Antigen 06/16/17 06/16/17 06/16/17 11:46 16:50 20:34 WBC RBC Hgb Hct MCV MCH MCHC RDW Plt Count MPV Sickle Cell Screen Sodium Potassium Chloride Carbon Dioxide Anion Gap BUN Creatinine Creat Clearance w eGFR POC Glucometer 154 146 305 Random Glucose Calcium Total Bilirubin AST ALT Alkaline Phosphatase Total Protein Albumin Urine Color Urine Appearance Urine pH Ur Specific [place] Urine Protein Urine Glucose (UA) Urine Ketones Urine Blood Urine Nitrite Urine Bilirubin Urine Urobilinogen Ur Leukocyte Esterase RPR Titer HIV 1&2 Antibody Screen HIV P24 Antigen 06/17/17 06/17/17 06/17/17 06:24 07:37 13:55 WBC RBC Hgb Hct MCV MCH MCHC RDW Plt Count MPV Sickle Cell Screen Sodium Potassium Chloride Carbon Dioxide Anion Gap BUN Creatinine Creat Clearance w eGFR POC Glucometer 55 117 279 Random Glucose Calcium Total Bilirubin AST ALT Alkaline Phosphatase Total Protein Albumin Urine Color Urine Appearance Urine pH Ur Specific [place] Urine Protein Urine Glucose (UA) Urine Ketones Urine Blood Urine Nitrite Urine Bilirubin Urine Urobilinogen Ur Leukocyte Esterase RPR Titer HIV 1&2 Antibody Screen HIV P24 Antigen 06/17/17 06/17/17 06/18/17 16:49 21:29 06:30 WBC RBC Hgb Hct MCV MCH MCHC RDW Plt Count MPV Sickle Cell Screen Sodium Potassium Chloride Carbon Dioxide Anion Gap BUN Creatinine Creat Clearance w eGFR POC Glucometer 226 302 63 Random Glucose Calcium Total Bilirubin AST ALT Alkaline Phosphatase Total Protein Albumin Urine Color Urine Appearance Urine pH Ur Specific [place] Urine Protein Urine Glucose (UA) Urine Ketones Urine Blood Urine Nitrite Urine Bilirubin Urine Urobilinogen Ur Leukocyte Esterase RPR Titer HIV 1&2 Antibody Screen HIV P24 Antigen 06/18/17 06/18/17 06/18/17 11:45 16:42 21:33 WBC RBC Hgb Hct MCV MCH MCHC RDW Plt Count MPV Sickle Cell Screen Sodium Potassium Chloride Carbon Dioxide Anion Gap BUN Creatinine Creat Clearance w eGFR POC Glucometer 285 218 239 Random Glucose Calcium Total Bilirubin AST ALT Alkaline Phosphatase Total Protein Albumin Urine Color Urine Appearance Urine pH Ur Specific [place] Urine Protein Urine Glucose (UA) Urine Ketones Urine Blood Urine Nitrite Urine Bilirubin Urine Urobilinogen Ur Leukocyte Esterase RPR Titer HIV 1&2 Antibody Screen HIV P24 Antigen 06/19/17 06/19/17 06:30 11:50 WBC RBC Hgb Hct MCV MCH MCHC RDW Plt Count MPV Sickle Cell Screen Sodium Potassium Chloride Carbon Dioxide Anion Gap BUN Creatinine Creat Clearance w eGFR POC Glucometer 115 218 Random Glucose Calcium Total Bilirubin AST ALT Alkaline Phosphatase Total Protein Albumin Urine Color Urine Appearance Urine pH Ur Specific [place] Urine Protein Urine Glucose (UA) Urine Ketones Urine Blood Urine Nitrite Urine Bilirubin Urine Urobilinogen Ur Leukocyte Esterase RPR Titer HIV 1&2 Antibody Screen HIV P24 Antigen Subj: Patient states he has to leave to pay bills and send money to his mother. Requested to sign out AMA. Denies physical complaints at this time. Obj: General: Patient is alert and oriented x 3. In no acute distress. Ambulating within unit without device. Medically stable. A/P: AMA Patient educated regarding risk factors of relapse and overdose/. Encouraged to remain in program to complete rehab and current treatment but patient refused. States he is not interested in continuing Suboxone treatment. Patient recommended to follow up with PCP in community for ongoing medical care. Patient verbalized understanding of recommendations and education.
--- NOTE | 2017-06-19 14:36 | DS ---
[facility] Detox Discharge Summary Admission Date: 06/12/17 - History Present History: Opioid Dependence - Physical Exam Results Vital Signs: Vital Signs Temperature 98.4 F 06/19/17 06:47 Pulse Rate 79 06/19/17 06:47 Respiratory Rate 18 06/19/17 06:47 Blood Pressure 126/68 06/19/17 06:47 O2 Sat by Pulse Oximetry (%) - Medication Discharge Medications: Ambulatory Orders Aripiprazole [Abilify -] 10 mg PO DAILY 06/03/17 Ibuprofen 800 mg PO PRN PRN 06/12/17 Aripiprazole [Abilify -] 10 mg PO HS #30 tablet 06/19/17 Aspirin Coated [Ecotrin -] 81 mg PO DAILY #30 tablet.ec 06/19/17 Atorvastatin Ca [Lipitor] 40 mg PO HS #30 tablet 06/19/17 Docusate Sodium [Colace -] 100 mg PO BID #60 capsule 06/19/17 Enalapril Maleate [Vasotec -] 10 mg PO DAILY #30 tablet 06/19/17 Fluticasone Prop 0.05% Nasal [Flonase -] 3 spray IH DAILY #1 spray 06/19/17 Insulin Detemir [Levemir Flextouch] 85 units SQ HS #1 insuln.pen 06/19/17 Mirtazapine [Remeron -] 45 mg PO HS #90 tablet 06/19/17 Sitagliptin Phos/Metformin HCl [Janumet 50-1,000 mg Tablet] 1 each PO BID #60 tablet 06/19/17 Venlafaxine HCl ER [Effexor Xr -] 150 mg PO DAILY #30 cap.er.24h 06/19/17 - AMA Did Patient Leave Against Medical Advice: Yes
--- NOTE | 2017-06-19 15:11 | PN ---
Psychiatric Progress Note Vital Signs: Vital Signs Period Temp Pulse Resp BP Sys/Alvarez Pulse Ox Last 24 Hr 98.4 F 79 18-18 126/68 Date of Session: 06/19/17 Chief Complaint:: "leaving AMA" HPI: Patient is a 56 year old male with history of cocaine, nicotine dependence comorbid PTSD and MDD. ROS: WNL Current Medications: Active Medications Generic Name Dose Route Start Last Admin Trade Name Freq PRN Reason Stop Dose Admin Acetaminophen 650 mg 06/12/17 13:20 06/17/17 21:34 Tylenol - PO 650 mg Q4H PRN Administration FEVER Al Hydroxide/Mg Hydroxide 30 ml 06/12/17 13:20 Mylanta Oral Suspension - PO Q6H PRN DYSPEPSIA Aripiprazole 10 mg 06/13/17 22:00 06/18/17 21:34 Abilify PO 10 mg HS ROBERT Administration Aspirin 81 mg 06/12/17 14:10 06/19/17 09:57 Ecotrin - PO 81 mg DAILY ROBERT Administration Atorvastatin Calcium 40 mg 06/12/17 22:00 06/18/17 21:35 Lipitor - PO 40 mg HS ROBERT Administration Bacitracin 0.9 gm 06/13/17 22:00 06/19/17 11:00 Bacitracin - TP 0.9 gm BID ROBERT Administration Buprenorphine/Naloxone 2 each 06/16/17 10:00 06/19/17 09:58 Suboxone 2mg/0.5mg Sl Film - SL 2 each DAILY ROBERT Administration Docusate Sodium 100 mg 06/12/17 14:15 06/19/17 09:57 Colace - PO 100 mg BID ROBERT Administration Enalapril Maleate 10 mg 06/12/17 14:10 06/19/17 09:57 Vasotec - PO 10 mg DAILY ROBERT Administration Eucalyptus/Menthol/Phenol/Sorbitol 1 each 06/12/17 13:20 Cepastat Lozenge - MM Q4H PRN SORE THROAT Fluticasone Propionate 2 spray 06/12/17 13:30 06/19/17 09:57 Flonase - NS 2 spray BID ROBERT Administration Guaifenesin 10 ml 06/12/17 13:20 06/14/17 06:48 Robitussin Dm - PO 10 ml Q6H PRN Administration COUGH Hydroxyzine Pamoate 50 mg 06/12/17 13:20 Vistaril - PO Q4H PRN AGITATION Ibuprofen 400 mg 06/12/17 13:20 06/18/17 09:54 Motrin - PO 400 mg Q6H PRN Administration Pain level 4-6 Insulin Aspart 1 vial 06/13/17 11:46 06/19/17 11:53 Novolog Vial Sliding Scale - SQ 4 unit ACHS ROBERT Administration Protocol Insulin Detemir 85 units 06/12/17 22:00 06/18/17 21:33 Levemir Vial SQ 85 units HS ROBERT Administration Loperamide HCl 4 mg 06/12/17 13:20 Imodium - PO Q6H PRN DIARRHEA Magnesium Citrate 300 ml 06/12/17 13:20 Citroma - PO Q48H PRN CONSTIPATION Magnesium Hydroxide 30 ml 06/12/17 13:20 06/19/17 11:05 Milk Of Magnesia - PO 30 ml DAILY PRN Administration CONSTIPATION Melatonin 5 mg 06/12/17 22:00 Melatonin PO HS PRN INSOMNIA Metformin HCl 1,000 mg 06/12/17 16:30 06/19/17 06:30 Glucophage - PO 1,000 mg BID@0700,1630 ROBERT Administration Methyl Salicylate 1 applic 06/14/17 22:00 06/19/17 09:58 Ted-Yo - TP Not Given BID [facility] Mirtazapine 45 mg 06/13/17 22:00 06/18/17 21:35 Remeron - PO 45 mg HS ROBERT Administration Nicotine 21 mg 06/12/17 14:10 06/19/17 09:58 Nicoderm Patch - TD 21 mg DAILY ROBERT Administration Nicotine Polacrilex 4 mg 06/12/17 13:20 06/19/17 11:54 Nicorette Gum - BUC 4 mg Q2H PRN Administration NICOTINE REPLACEMENT RX Multivit/Folic Acid/Iron 1 tab 06/13/17 10:00 06/19/17 09:57 Vitamins (Sjr) - PO 1 tab DAILY ROBERT Administration Pseudoephedrine/Triprolidine 1 combo 06/12/17 13:20 Actifed - PO TID PRN NASAL CONGESTION Sitagliptin Phosphate 50 mg 06/12/17 16:30 06/19/17 06:30 Januvia - PO 50 mg BID@0700,1630 ROBERT Administration Thiamine HCl 100 mg 06/12/17 22:00 04/29/18 21:35 Vitamin B1 - PO 100 mg HS ROBERT Administration Venlafaxine HCl 150 mg 06/14/17 10:00 06/19/17 09:57 Effexor Xr - PO 150 mg DAILY ROBERT Administration Current Side Effect: No Lab tests ordered: No Lab tests reviewed: Yes Provider note:: Patient decided to leave treatment AMA, met with the patient to explore reasons for terminating treatment at this point, patient reported that he needs to take care of his personal issues, patient was encouraged to stay and focus on his treatment, but adamant to leave treatment, patient appears stable for discharge. Scrips for his medications forwarded to his pharmacy. Total face to face time:: 15 Mental Status Exam - Mental Status Exam Alert and Oriented to: Time, Place, Person Cognitive Function: Good Patient Appearance: Well Groomed Affect: Appropriate, Mood Congruent Patient Behavior: Appropriate, Cooperative Speech Pattern: Clear, Appropriate Voice Loudness: Normal Thought Process: Intact, Goal Oriented Thought Disorder: Not Present Hallucinations: Denies Suicidal Ideation: Denies Homicidal Ideation: Denies Insight/Judgement: Fair Sleep: Well Appetite: Good Muscle strength/Tone: Normal Gait/Station: Normal Psychiatric Treatment Plan - Problem List (1) PTSD (post-traumatic stress disorder) Current Visit: Yes (2) MDD (major depressive disorder) Current Visit: Yes (3) Cocaine dependence Current Visit: Yes (4) Nicotine dependence Current Visit: Yes
== END 2017-06-19 15:15 | disposition left against medical advice (07) | DRG 894 ==
LOC: YASAS 09:18 → Y5N 14:04
PROVIDERS: ADMIT Psychiatry & Neurology Psychiatry; ATTEND Psychiatry & Neurology Psychiatry
PROC: HZ42ZZZ Group Counseling for Substance Abuse Treatment, Cognitive-Behavioral (ICD-10-PCS; principal; 2017-06-12)
DX: F11.23 Opioid dependence with withdrawal (principal); F14.20 Cocaine dependence, uncomplicated; F33.9 Major depressive disorder, recurrent, unspecified; F17.210 Nicotine dependence, cigarettes, uncomplicated; F43.10 Post-traumatic stress disorder, unspecified; E78.00 Pure hypercholesterolemia, unspecified; I10 Essential (primary) hypertension; E10.65 Type 1 diabetes mellitus with hyperglycemia; Z79.4 Long term (current) use of insulin; R19.7 Diarrhea, unspecified; M79.642 Pain in left hand; Z86.69 Personal history of other diseases of the nervous system and sense organs; Z91.5 Personal history of self-harm; Z59.0 Homelessness
CPT/HCPCS: 36415; 80053; 81003; 82962; 85027; 85660; 86593; 87389; 93005; 93010